=== PATIENT | female | born 1990 | race Caucasian/White ===

== ENCOUNTER 2021-07-04 04:33 | Emergency (ER) | payer MEDICARE, OTHER ==
[~2021-07-04] VITALS: Ht 167.6 cm; Wt 113.4 kg
[2021-07-04] MEDS ORDERED: HYDROCODONE/APAP 5MG-325MG TAB PO ONE (06:30)
== END 2021-07-04 06:41 | disposition home or self-care (01) ==
LOC: ER 05:33
DX: S50.12XA Contusion of left forearm, initial encounter (principal); Y04.0XXA Assault by unarmed brawl or fight, initial encounter; Y92.89 Other specified places as the place of occurrence of the external cause
CPT/HCPCS: 99283